=== PATIENT | female | born 1945 | race Caucasian/White ===

== ENCOUNTER 2020-08-16 12:46 | Emergency (ER) | payer MEDICARE, BC ==
[~2020-08-16] VITALS: Ht 157.5 cm; Wt 72.7 kg
[2020-08-16] MEDS ORDERED: XANAX0.5 MG PO (13:29)
[2020-08-16] MEDS ORDERED: CARDIZEM30 MG PO (13:29)
[2020-08-16] MEDS ORDERED: LASIX 40 MG TAB40 MG PO (13:29)
[2020-08-16] MEDS ORDERED: ZANAFLEX4 MG PO (13:30)
[2020-08-16] MEDS ORDERED: KLOR-CON M1010 MEQ PO (13:30)
[2020-08-16] MEDS ORDERED: AMIODARONE200 MG PO (13:31)
[2020-08-16] MEDS ORDERED: BUSPIRONE HCL7.5 MG PO (13:31)
[2020-08-16] MEDS ORDERED: METHADONE10 M1 PO (13:31)
[2020-08-16] MEDS ORDERED: DIGOXIN250 MCG PO (13:32)
[2020-08-16] MEDS ORDERED: PRAVASTATIN SOD20 MG PO (13:33)
[2020-08-16] MEDS ORDERED: LEVOTHYROXIN50 MCG PO (13:33)
[2020-08-16] MEDS ORDERED: FOLIC ACID1 M1 PO (13:33)
[2020-08-16] MEDS ORDERED: SPIRONOLACT25 MG PO (13:34)
[2020-08-16] MEDS ORDERED: GABAPENTIN300 M2 PO (13:34)
[2020-08-16] MEDS ORDERED: CYMBALTA30 MG PO (13:35)
[2020-08-16] MEDS ORDERED: TRAZODONE HCL50 MG PO (13:35)
[2020-08-16] MEDS ORDERED: ELIQUIS5 MG PO (13:35)
[2020-08-16] MEDS ORDERED: ACTEMRA80 MG/4 ML IV (13:37)
[2020-08-16] MEDS ORDERED: MEDDOSEPAK PO (14:44)
[2020-08-16 14:56] VITALS: BP 136/78
== END 2020-08-16 14:56 | disposition home or self-care (01) ==
LOC: ED 12:46
DX: M06.9 Rheumatoid arthritis, unspecified (principal); I50.9 Heart failure, unspecified; I48.91 Unspecified atrial fibrillation; F32.9 Major depressive disorder, single episode, unspecified; Z79.01 Long term (current) use of anticoagulants; Z79.891 Long term (current) use of opiate analgesic; Z95.0 Presence of cardiac pacemaker; M79.661 Pain in right lower leg